=== PATIENT | male | born 1980 | race Two or more races ===

== ENCOUNTER 2017-02-10 07:03 | Emergency (ER) | payer SELFPAY ==
[~2017-02-10] VITALS: Ht 188 cm; Wt 126.1 kg
[2017-02-10] MEDS ORDERED: PERCOCET 5/31 TABLET PO (07:59)
[2017-02-10] MEDS ORDERED: PEN-VEE K,VEET500 MG PO (07:59)
[2017-02-10] MEDS ORDERED: MOTRIN800 MG PO (07:59)
[2017-02-10 08:23] VITALS: BP 150/102
== END 2017-02-10 08:23 | disposition home or self-care (01) ==
LOC: EME 07:03
DX: K08.89 Other specified disorders of teeth and supporting structures (principal); F17.210 Nicotine dependence, cigarettes, uncomplicated; I10 Essential (primary) hypertension
CPT/HCPCS: 99281; 99283